=== PATIENT | male | born 1935 | race Caucasian/White ===

== ENCOUNTER 2019-06-07 07:48 | Inpatient (IN) | payer MEDICARE, BC ==
[~2019-06-07] VITALS: Ht 167.6 cm; Wt 72.6 kg
[2019-06-07] MEDS ORDERED: ONDANSETRON 4 MG/2 ML VIAL ONE ×2 (08:02→08:58)
[2019-06-07] MEDS ORDERED: MORPHINE SULFATE 2 MG/1 ML DISP.SYRIN ONE ×2 (08:02→08:37)
[2019-06-07] MEDS ORDERED: ONDANSETRON 4 MG/2 ML VIAL IV ONE ×2 (08:30→10:00)
[2019-06-07] MEDS ORDERED: MORPHINE SULFATE 2 MG/1 ML DISP.SYRIN IV ONE ×3 (08:30→09:00)
[2019-06-07] MEDS: IV NORMAL SALINE 500 ML BAG IV ONE ×2 (08:33→08:35)
--- NOTE | 2019-06-07 08:35 | NUR ---
Offered to provide more Morphine for pain relief, but patient refuses at this time.
[2019-06-07 08:46] LABS: ALANINE AMINOTRANSFERASE 11 U/L (16-63); ALKALINE PHOSPHATASE 98 U/L (50-136); ASPARTATE AMINOTRANSFERASE 12 U/L (15-37); BILIRUBIN,DIRECT 0.1 mg/dL (0.0-0.2); BILIRUBIN,TOTAL 0.4 mg/dL (0.2-1.0); CARBON DIOXIDE 29 mmol/L (21-32); CHLORIDE 99 mmol/L (98-107); CREATININE 2.1 mg/dL (0.6-1.3); GLUCOSE 198 mg/dL (74-106); LIPASE 106 U/L (73-393); POTASSIUM 3.9 mmol/L (3.5-5.1); TOTAL PROTEIN, SERUM 7.7 g/dL (6.4-8.2); UREA NITROGEN, BLOOD 44 mg/dL (7-18)
[2019-06-07 08:47] LABS: BASOPHILS % (AUTO) 0.1 % (0.0-2.0); EOSINOPHILS % (AUTO) 0.2 % (0.0-7.0); HEMATOCRIT 41.7 % (36.7-47.1); HEMOGLOBIN 13.6 g/dL (12.5-16.3); LYMPHOCYTES # (AUTO) 0.7 K/uL (20.0-40.0); LYMPHOCYTES % (AUTO) 3.9 % (20.5-51.5); MEAN CORPUSCULAR HGB CONC 33 g/dL (32.5-36.3); MEAN CORPUSCULAR VOLUME 86.1 fL (73.0-96.2); MONOCYTES # (AUTO) 1.1 K/uL (2.0-10.0); MONOCYTES % (AUTO) 6.7 % (0.0-11.0); NEUTROPHILS # (AUTO) 15.1 K/uL (1.8-8.9); NEUTROPHILS % (AUTO) 89.1 % (38.5-71.5); PLATELET COUNT (AUTO) 272 K/uL (152-348); RED BLOOD CELL COUNT(AUTO) 4.85 MIL/uL (4.06-5.63)
[2019-06-07] MEDS ORDERED: CLON0.2T PO (08:52)
[2019-06-07] MEDS ORDERED: ATEN50TA PO (08:52)
[2019-06-07] MEDS ORDERED: HYDR12.55 PO (08:52)
[2019-06-07] MEDS ORDERED: PROP15TA PO (08:52)
[2019-06-07] MEDS ORDERED: AMIO200T4 PO (08:52)
[2019-06-07] MEDS ORDERED: RAMI2.5C2 PO (08:52)
--- NOTE | 2019-06-07 08:53 | NUR ---
Patient received the second dose of Morphine 2mg IV, and is tolerating well. Pain relief noted, but nausea more pertinent at this time.
[2019-06-07] MEDS ORDERED: PIPERACILLIN SODIUM/TAZOBACTAM 3.375 G in IV DEXTROSE 5% 50 ML IV ONE (09:00)
--- NOTE | 2019-06-07 09:00 | NUR ---
ERMD at bedside discussing results of CT scan.
--- NOTE | 2019-06-07 09:05 | NUR ---
Dr. Her on the line with ERMD discussing patient case
[2019-06-07] MEDS ORDERED: PIPERACILLIN/TAZOBACTAM/D5W 50 ML IV ONE (09:09)
[2019-06-07] MEDS ORDERED: LIDOCAINE 2% (UROJET) 10 ML JELLY MM ONE ×2 (09:10→09:15)
--- NOTE | 2019-06-07 09:28 | NUR ---
Patient ambulated to the bathroom to attempt to move bowels.
--- NOTE | 2019-06-07 09:38 | NUR ---
Still awaiting call back from Keith
--- NOTE | 2019-06-07 09:40 | NUR ---
Dr. Her here at bedside for evaluation
--- NOTE | 2019-06-07 09:41 | NUR ---
2nd attempt to reach out to [facility], awaiting call back.
--- NOTE | 2019-06-07 09:42 | NUR ---
Patient had 3 bowel movements and states that he has more relief after moving bowels.
--- NOTE | 2019-06-07 09:59 | NUR ---
Patient in bathroom again moving BM.
--- NOTE | 2019-06-07 10:21 | NUR ---
Awaiting call back from [facility]
--- NOTE | 2019-06-07 10:51 | NUR ---
TELE not ready for report, still awaiting call back.
--- NOTE | 2019-06-07 11:27 | NUR ---
Report given to JOSELINE Magana
--- NOTE | 2019-06-07 11:37 | NUR ---
Patient transported to TELE in stable condition.
--- NOTE | 2019-06-07 11:45 | NUR ---
Received this admission from ER per with the chief complaint of abdominal pain, diagnosis of colitis. Transferred to bed comfortably. Routine admission care rendered. Placed on tele SR. Awake, alert oriented x 4, able to move all extremities on purpose. Patient verbalized having loose stool x [address] Gayle for admission orders
[2019-06-07 12:01] VITALS: BP 139/41
[2019-06-07] MEDS ORDERED: ONDANSETRON 4 MG/2 ML VIAL IV PRN (12:45)
[2019-06-07] MEDS ORDERED: MORPHINE SULFATE 2 MG/1 ML DISP.SYRIN IV PRN (12:45)
[2019-06-07] MEDS ORDERED: IV D5 1/2 NS 1000 ML 1,000 ML IV PRN (12:45)
--- NOTE | 2019-06-07 13:00 | NUR ---
With admission orders. To start IVF, but patient was not in his room, Tele monitor off. Left a message to his phone and spoke with his girlfriend Christina. She will get hold of him. will follow up
--- NOTE | 2019-06-07 13:30 | NUR ---
Patient called back informing he will not come back. saline lock removed. Dr. Gayle informed of patient leaving against medical advice.
[2019-06-07] MEDS ORDERED: PANTOPRAZOLE SODIUM 40 MG VIAL IV SCH (14:00)
[2019-06-07] MEDS ORDERED: PIPERACILLIN/TAZOBACTAM/D5W 3.375 G in IV DEXTROSE 5% 50 ML IV SCH (17:00)
[2019-06-07] MEDS ORDERED: PIPERACILLIN/TAZO 2.25 G in IV DEXTROSE 5% 50 ML IV SCH (18:00)
== END 2019-06-07 12:59 | disposition left against medical advice (07) | DRG 371 ==
LOC: ER 07:48 → TELE3 11:09
PROVIDERS: ADMIT Internal Medicine; ATTEND Internal Medicine
DX: A04.9 Bacterial intestinal infection, unspecified (principal); N17.0 Acute kidney failure with tubular necrosis; K57.32 Diverticulitis of large intestine without perforation or abscess without bleeding; K59.09 Other constipation; N40.0 Benign prostatic hyperplasia without lower urinary tract symptoms; I12.9 Hypertensive chronic kidney disease with stage 1 through stage 4 chronic kidney disease, or unspecified chronic kidney disease; N18.9 Chronic kidney disease, unspecified; R73.9 Hyperglycemia, unspecified; I25.10 Atherosclerotic heart disease of native coronary artery without angina pectoris; Z87.19 Personal history of other diseases of the digestive system; Z79.899 Other long term (current) drug therapy; R00.1 Bradycardia, unspecified; R91.1 Solitary pulmonary nodule
CPT/HCPCS: 36415; 83690; 85025; 93005; A4663; C1758; C9113; G0378; J2270; J2405; J2543; J3490; J7060

== ENCOUNTER 2020-08-15 21:07 | Inpatient (IN) | payer MEDICARE, BC ==
[~2020-08-15] VITALS: Ht 172.7 cm; Wt 68.0 kg
[~2020-08-15 21:07] MED LIST: AMIO200T5 PO; ATEN50TA PO; CLON0.2T PO; HYDR12.55 PO; PROP15TA PO; RAMI2.5C55 PO
--- NOTE | 2020-08-15 21:30 | NUR ---
Patient present to the ED via [facility] for ALOC/Confusion from home. Neighbor (who is also the coworker) was the person to contact neurology teacher. Patient is confused - A&O times 1/2. Is able to say why he is here and where he is but not what year it is. Unable to obtain pertinent information from this patient due to ALOC. Sinus Rhythm. No reports of chest pain or palpitations. Lungs show bilateral infiltrates typical of pneumonia. Patient was possibly previously COVID +. Patient self catheterizes at home. Safety measures in place.
[2020-08-15] MEDS ORDERED: PROP225T2 PO (21:31)
[2020-08-15] MEDS ORDERED: TRIA1CAP19 PO (21:31)
[2020-08-15 21:56] LABS: EOSINOPHILS # (AUTO) 0.1 K/uL (0.0-0.7); LYMPHOCYTES # (AUTO) 0.9 K/uL (20.0-40.0); MONOCYTES # (AUTO) 0.6 K/uL (2.0-10.0)
[2020-08-15 21:59] LABS: NEUTROPHILS # (AUTO) 5.5 K/uL (1.8-8.9)
[2020-08-15 22:05] LABS: CARBON DIOXIDE 24 mmol/L (21-32); CHLORIDE 99 mmol/L (98-107); CREATININE 2.4 mg/dL (0.6-1.3); GLUCOSE 93 mg/dL (74-106); POTASSIUM 3.6 mmol/L (3.5-5.1); UREA NITROGEN, BLOOD 50 mg/dL (7-18)
[2020-08-15 22:10] LABS: ALANINE AMINOTRANSFERASE 15 U/L (16-63); ALKALINE PHOSPHATASE 59 U/L (50-136); ASPARTATE AMINOTRANSFERASE 33 U/L (15-37); BILIRUBIN,DIRECT 0.3 mg/dL (0.0-0.2); TOTAL PROTEIN, SERUM 7.4 g/dL (6.4-8.2)
[2020-08-15 22:11] LABS: CREATINE KINASE, TOTAL 218 U/L (39-308)
[2020-08-15 22:15] LABS: FERRITIN 574 ng/mL (26-388); LACTATE DEHYDROGENASE 396 U/L (85-227)
[2020-08-15 22:17] LABS: ACETAMINOPHEN < 2.0 ug/mL (10-30)
[2020-08-15] MEDS ORDERED: IV NORMAL SALINE 250 ML BAG IV ONE (22:30)
[2020-08-15] MEDS ORDERED: IV NORMAL SALINE 500 ML BAG IV ONE (22:30)
[2020-08-15 22:31] LABS: BASOPHILS % (AUTO) 0.6 % (0.0-2.0); EOSINOPHILS % (AUTO) 1.5 % (0.0-7.0); HEMATOCRIT 40.6 % (36.7-47.1); HEMOGLOBIN 13.5 g/dL (12.5-16.3); LYMPHOCYTES % (AUTO) 12.8 % (20.5-51.5); MEAN CORPUSCULAR HEMOGLOBIN 28.7 uug (23.8-33.4); MEAN CORPUSCULAR HGB CONC 33 g/dL (32.5-36.3); MEAN CORPUSCULAR VOLUME 86.2 fL (73.0-96.2); MONOCYTES % (AUTO) 8.5 % (0.0-11.0); NEUTROPHILS % (AUTO) 76.6 % (38.5-71.5); PLATELET COUNT (AUTO) 240 K/uL (152-348); RED BLOOD CELL COUNT(AUTO) 4.71 MIL/uL (4.06-5.63); WHITE BLOOD COUNT (AUTO) 7.1 K/uL (3.6-10.2)
[2020-08-15 22:43] LABS: *BILIRUBIN,URIN 1+ (NEGATIVE); *COLOR,URINE YELLOW (YELLOW); *KETONES,URINE TRACE (NEGATIVE); LEUKOCYTE ESTERASE ,URINE 1+ (NEGATIVE); NITRITE, URINE NEGATIVE (NEGATIVE); PH,URINE 6.5 (5.0-8.0); UGLUCOSE NEGATIVE (NEGATIVE)
[2020-08-15 22:45] LABS: *BLOOD, URINE TRACE (NEGATIVE)
[2020-08-15 22:46] LABS: *CLARITY,URINE HAZY (CLEAR)
[2020-08-15 22:53] LABS: BACTERIA,URINE MODERATE /HPF (NONE SEEN); WBC,URINE 20-50 /HPF (0-3)
[2020-08-15 22:54] LABS: SQUAMOUS EPITHELIAL CELL,UR FEW /HPF (NONE SEEN)
[2020-08-15] MEDS ORDERED: ENOXAPARIN SODIUM 60 MG/0.6 ML DISP.SYRIN SQ ONE (23:00)
[2020-08-15 23:04] LABS: *AMPHETAMINE, URINE NEGATIVE (NEGATIVE); *CANNABINOID, URINE NEGATIVE (NEGATIVE); *COCCAINE, URINE NEGATIVE (NEGATIVE); *OPIATE, URINE NEGATIVE (NEGATIVE); *PHENCYCLIDINE SCREEN,URINE NEGATIVE (NEGATIVE)
[2020-08-15] MEDS ORDERED: CEFTRIAXONE /D5W 50ML IVPB **ER PYXIS IV ONE (23:08)
[2020-08-15] MEDS: CEFTRIAXONE 1 G in IV DEXTROSE 5% 50 ML IV SCH (23:12)
[2020-08-15] MEDS ORDERED: DEXAMETHASONE SOD PHOSPHATE 10 MG INJ ONE (23:43)
[2020-08-15] MEDS ORDERED: MAGNESIUM HYDROXIDE 30 ML LIQUID UDC PO PRN (23:45)
[2020-08-15] MEDS ORDERED: ACETAMINOPHEN 325 MG TABLET PO PRN (23:45)
[2020-08-15] MEDS ORDERED: ONDANSETRON 4 MG/2 ML VIAL IV PRN (23:45)
[2020-08-15] MEDS ORDERED: CEFTRIAXONE 1 G in IV DEXTROSE 5% 50 ML IV SCH (23:45)
[2020-08-15] MEDS ORDERED: HYDROCODONE/APAP 5-325MG TABLET PO PRN (23:45)
[2020-08-15] MEDS ORDERED: Z GUARD REMEDY PASTE 57 GM TUBE TOP PRN (23:45)
[2020-08-16] MEDS ORDERED: DEXAMETHASONE SOD PHOSPHATE 4 MG INJ IV ONE
--- NOTE | 2020-08-16 00:20 | NUR ---
ADMITTED PATIENT ON THE TELE FLOOR UNDER THE CARE OF REKHA OLEARY NP. PATIENT ALERT TO NAME, NO CHEST PAIN, PATIENT ON 5 LPM OXYGEN FOR SOB, RUSSELL CATH CAME OUT, WILL REINSERT NEW ONE. PATIENT HAS LEFT ELBOW ABRASION, HAS LEFT AND RIGHT ARM MULTIPLE BRUISES, AND LEFT AND RIGHT MULTIPLE BRUISE. PATIENT ON PUI, COVID PCR PENDING. CONT TO MONITOR.
--- NOTE | 2020-08-16 00:34 | NUR ---
Patient taken to Room 314 via gurney under the care of Bhavesh TREVIZO. All belongings & Medications with patient. Old report with patient given to histopath tech Angela. NO distress noted. Patient still confused. VSS.
[2020-08-16] MEDS: IV NS 1000 ML 1,000 ML IV PRN (01:00)
[2020-08-16 01:16] VITALS: BP 112/71
--- NOTE | 2020-08-16 01:58 | NUR ---
PATIENT REFUSED TELE MONITOR BOX, PATIENT GETS AGITATED, ALLOW TO HAVE OXYGEN 5LPM, AND IV HYDRATION, WILL CONT TO OFFER.
--- NOTE | 2020-08-16 02:00 | NUR ---
PATIENT REMOVES OXYGEN ALSO, CONTINUE TO REORIENT PATIENT NOT TO REMOVED IT. CONT TO MONITOR.
--- NOTE | 2020-08-16 02:04 | NUR ---
PATIENT REFUSE RUSSELL CATH INSERTION, GETS COMBATIVE AND AGITATED.
--- NOTE | 2020-08-16 03:00 | NUR ---
PATIENT CONTINUE TO REFUSED OXYGEN NC, OXYGEN SAT 94-96% ROOM AIR. PATIENT HAS NO S/S OF SOB AT THIS TIME, CONT TO MONITOR. CONTINUE TO REFUSE TELE MONITOR BOX ALSO AT THIS TIME, CONT TO MONITOR.
--- NOTE | 2020-08-16 06:11 | NUR ---
PATIENT AMBULATE TO HALLWAYS, REORIENT PATIENT THAT HE NEEDS TO STAY ON HIS ROOM, ASSISTED BACK TO ROOM, GIVEN JUICE AND PUDDING NOURISHMENT FOR COMFORT. PATIENT IV HYDRATION ON HOLD AT THIS TIME, REFUSED LAB WORKS.
--- NOTE | 2020-08-16 06:52 | NUR ---
PATIENT REFUSED V/S TAKEN 95% ROOM AIR, REFUSED TELE MONITOR, REFUSED RUSSELL CATH, AND IV HYDRATION ON HOLD AT THIS TIME.
--- NOTE | 2020-08-16 07:30 | NUR ---
Received patient awake in bed. no signs of acute distress. bed alarm on. patient refused tele monitor box. will continue to monitor.
--- NOTE | 2020-08-16 09:30 | NUR ---
PATIENT REFUSED LAB DRAW. PATIENT REFUSED V/S. PATIENT EASILY AGITATED. PATIENT TRIES TO GET OUT OF BED MULTIPLE TIMES BUT REDIRECTABLE. WILL CONTINUE TO MONITOR
[2020-08-16 09:35] LABS: *BILIRUBIN,URIN NEGATIVE (NEGATIVE); *BLOOD, URINE 2+ (NEGATIVE); *COLOR,URINE YELLOW (YELLOW); *KETONES,URINE 1+ (NEGATIVE); *UROBILINOGEN,URINE 0.2 E.U./dl (NORMAL); LEUKOCYTE ESTERASE ,URINE TRACE (NEGATIVE); NITRITE, URINE NEGATIVE (NEGATIVE); UGLUCOSE NEGATIVE (NEGATIVE)
[2020-08-16 10:32] LABS: *CREATININE,URINE 133.2 mg/dL (30-125); *URINE TOTAL PROTEIN RANDOM 58.3 mg/dL (<150/24HR)
--- NOTE | 2020-08-16 11:22 | NUR ---
Pt refused renal ultrasound, pt wants to leave AMA.
[2020-08-16] MEDS ORDERED: HALOPERIDOL LACTATE 5 MG/1 ML VIAL IM ONE ×2 (11:30→21:00)
--- NOTE | 2020-08-16 11:45 | NUR ---
patient became agitated, getting out of bed with his unsteady and weak gait, verbalizing he wants to go home. informed FRANTZ Tillman. FRANTZ Tillman talked to the patient and explained he is unstable to be sent home. patient became aggressive and agitated. patient did not want to go back to his room and was hitting the doors to go outside. FRANTZ Tillman ordered Haldol 2mg IM x 1 dose. Took patient back to room. bed alarm on. will continue to monitor.
[2020-08-16 14:22] LABS: *CLARITY,URINE SLIGHTLY CLOUDY (CLEAR)
[2020-08-16 14:23] LABS: BACTERIA,URINE FEW /HPF (NONE SEEN)
[2020-08-16 14:24] LABS: SQUAMOUS EPITHELIAL CELL,UR FEW /HPF (NONE SEEN); URINE AMORPHOUS URATE MODERATE /HPF
[2020-08-16 16:10] VITALS: BP 110/45
--- NOTE | 2020-08-16 19:30 | NUR ---
Received patient lying in bed. AAOx3-4. In no acute distress. A bit anxious, wanting to be left alone. IV site on right FA remains intact and patent. Patient still refusing to have case monitor placed as well as IVF. safety measure initiated. Call dow within reached. Continue to monitor
[2020-08-16 20:09] VITALS: BP 119/61
[2020-08-16] MEDS: AMIODARONE HCL 200 MG TABLET PO SCH (20:44)
[2020-08-16] MEDS: ATENOLOL 25 MG TABLET PO SCH (20:44)
[2020-08-16] MEDS: ENOXAPARIN SODIUM 30 MG/0.3 ML DISP.SYRIN SUBCUT SCH (20:46)
[2020-08-16] MEDS ORDERED: ATENOLOL 50 MG TABLET PO SCH (21:00)
--- NOTE | 2020-08-16 21:15 | NUR ---
Patient getting very agitated, yelling and screaming and being combative. Still refused to have concrete pouring supervisor on, also refusing bladder scan. No urinary output until now. Wanting to have straight catheter. Insisting to get straight catheter. Addendum: 08/17/20 at 0035 by ALIS BA RN Informed ADMINISTRATIVE MEDICAL DIRECTOR bam Tillman order for Haldol 5mg IM now. Order read back and verified. Will carry out order.
--- NOTE | 2020-08-16 23:00 | NUR ---
Straight catheter done, assisted patient, drained 600ml of yellow urine output.
[2020-08-16] MEDS: CEFTRIAXONE 1 G in IV DEXTROSE 5% 50 ML IV SCH (23:12)
--- NOTE | 2020-08-16 23:12 | NUR ---
Patient agreed to have IV antibiotics and IVF. Addendum: 08/17/20 at 0037 by ALIS BA RN Still refused to have lunchroom monitor on.
[2020-08-17] MEDS: IV NS 1000 ML 1,000 ML IV PRN ×2 (00:13→06:08)
--- NOTE | 2020-08-17 05:13 | NUR ---
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 No signs or symptoms of pain or SOB noted. NSR on tele at 85/min. Addendum: 08/17/20 at 0618 by ALIS BA RN wrong patient
--- NOTE | 2020-08-17 05:44 | NUR ---
Patient requested straight cath. Done and obtain 300ml of yellow urine output. Offered director of cardiac cath lab, but patient continue to refused.
--- NOTE | 2020-08-17 06:21 | NUR ---
Patient slept well last night. Right FA IV site remains intact. IVF infusing. No adverse reaction noted from IV antibiotics. Still refusing desk monitor. Also refused to have VS taken.
--- NOTE | 2020-08-17 07:30 | NUR ---
Received patient in bed. on room air. IV access intact. IVF infusing. will continue to monitor.
[2020-08-17 11:40] LABS: BASOPHILS % (AUTO) 0.2 % (0.0-2.0); EOSINOPHILS % (AUTO) 0.4 % (0.0-7.0); HEMATOCRIT 39.5 % (36.7-47.1); HEMOGLOBIN 13.3 g/dL (12.5-16.3); LYMPHOCYTES # (AUTO) 0.7 K/uL (20.0-40.0); LYMPHOCYTES % (AUTO) 13.9 % (20.5-51.5); MEAN CORPUSCULAR HEMOGLOBIN 29.2 uug (23.8-33.4); MEAN CORPUSCULAR HGB CONC 34 g/dL (32.5-36.3); MEAN CORPUSCULAR VOLUME 86.7 fL (73.0-96.2); MONOCYTES # (AUTO) 0.6 K/uL (2.0-10.0); MONOCYTES % (AUTO) 12.6 % (0.0-11.0); NEUTROPHILS # (AUTO) 3.7 K/uL (1.8-8.9); NEUTROPHILS % (AUTO) 72.9 % (38.5-71.5); PLATELET COUNT (AUTO) 336 K/uL (152-348); RED BLOOD CELL COUNT(AUTO) 4.55 MIL/uL (4.06-5.63); WHITE BLOOD COUNT (AUTO) 5.1 K/uL (3.6-10.2)
[2020-08-17 11:57] LABS: ALANINE AMINOTRANSFERASE 22 U/L (16-63); ALKALINE PHOSPHATASE 56 U/L (50-136); ASPARTATE AMINOTRANSFERASE 45 U/L (15-37); BILIRUBIN,TOTAL 0.6 mg/dL (0.2-1.0); CARBON DIOXIDE 23 mmol/L (21-32); CHLORIDE 103 mmol/L (98-107); CREATINE KINASE, TOTAL 553 U/L (39-308); CREATININE 1.5 mg/dL (0.6-1.3); GLUCOSE 116 mg/dL (74-106); PHOSPHOROUS 2.6 mg/dL (2.5-4.9); POTASSIUM 3.6 mmol/L (3.5-5.1); TOTAL PROTEIN, SERUM 7.2 g/dL (6.4-8.2); UREA NITROGEN, BLOOD 35 mg/dL (7-18)
[2020-08-17 12:00] VITALS: BP 138/51
[2020-08-17 12:10] LABS: MAGNESIUM 2.4 mg/dL (1.8-2.4)
[2020-08-17] MEDS: ENSURE ENLIVE (VAN) 240 ML LIQUID PO SCH (17:00)
--- NOTE | 2020-08-17 17:06 | NUR ---
Pipe Organ Builder note: SW was able to speak with patient via ZOOM. Patient is an 84 year old male, who came to the hospital on 08/15 for UTI and increased confusion. Patient is a PUI patient, and therefore due to COVID-19 precautions, this interview was held via ZOOM. Per nursing report, patient has been angry, combative, and refusing some treatments and services. Patient lives alone. Patient has a friend/caregiver Christina, who provides him with care and assists with some IADLs, as needed. 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 Patient was receptive to speaking with this SW. Patient was cooperative and engaged in conversation with this SW. Patient was seated at the edge of his bed. Patient presented lucid, although per medical records and nursing rport, patient was noted to have confusion. Patient was able to state the date, his location, and reason for hospitalization. Patient was also able to state that the current president is Belle. Discharge plans discussed, and patient stated he will be returning home and Christina will continue to assist him with his needs. SW explored additional supportive services for the patient, and patient stated he did not need additional services at this time. Patient stated that he plans on going home tomorrow. Towards the end of the interview, patient lied down in his bed, however continued to engage in dialogue with this SW. At time of discharge, the plan is for patients friend Christina to be contacted in order to provided transportation for the patient. SW also spoke with patients attending physician Kate, who stated that she too spoke with patients friend/caregiver Christina regarding patients ongoing care needs and discharge plans.
--- NOTE | 2020-08-17 19:30 | NUR ---
Pt lying in bed, aaox2-3. Denies any acute distress. On RA, denies SOB. V/S stable. Pt requested to get Valium (2mg), made aware. Per day shift RNYina, pt pulled out IV. Refused to reinsert a new IV. Pt refusing to have traffic monitor specialist placed. Safety measures in place. Call light within reach.
[2020-08-17] MEDS ORDERED: DIAZEPAM 2 MG TABLET PO ONE (19:45)
[2020-08-17] MEDS: AMIODARONE HCL 200 MG TABLET PO SCH (20:04)
[2020-08-17] MEDS: ENOXAPARIN SODIUM 30 MG/0.3 ML DISP.SYRIN SUBCUT SCH (20:05)
[2020-08-17] MEDS: ATENOLOL 25 MG TABLET PO SCH (20:05)
[2020-08-17 20:20] VITALS: BP 125/72
[2020-08-17] MEDS: CEFTRIAXONE 1 G in IV DEXTROSE 5% 50 ML IV SCH (23:00)
--- NOTE | 2020-08-18 06:04 | NUR ---
Assisted pt to self catheter. Output of 300ml noted. Refused meds such as lovenox and amiodarone, as well as 4am vitals. Pt also refused IV and PCR testing for Covid. Pt stated that he is going home today. No significant changes on pt status. Denies SOB, on RA. Safety measures in place. Will endorse to oncoming nurse.
--- NOTE | 2020-08-18 07:43 | NUR ---
Received sitting in bed awake and oriented. No acute distress. Breathing non labored. Denies pain. Denies sob on room air. Safety measures in place. Call light within reach and encouraged patient to use it. Will continue to monitor.
[2020-08-18] MEDS: ENSURE ENLIVE (VAN) 240 ML LIQUID PO SCH (08:23)
[2020-08-18] MEDS ORDERED: CIPR-262 PO (09:11)
--- NOTE | 2020-08-18 09:13 | NUR ---
Patient seen walking in the hallway and redirected back to his room safely. Call light is within reach and encouraged patient to call for help if needed. He verbalized ok
--- NOTE | 2020-08-18 10:52 | NUR ---
Spoke with GINO Jarrett and aware of discharge order. Home health is being arranged by Luiza. Patient will be visited on Thursday by RN and PT for eval. GINO also ordered DME FWW and will be delivered to the patient Thursday the latest.
--- NOTE | 2020-08-18 11:36 | NUR ---
Patient is discharged to home picked up by his caregiver Christina. Patient alert and oriented, happy to be discharged. All belongings are inventoried and verified by the patient. However, he refused VS check and refused skin assessment verbalizing he's ok. Also offered pneumonia and flu vaccines, but he refused and was unable to say when/if he got them already. Patient education done with the patient and verbalized understanding. Informed that patient is being referred to [facility] and will be evaluated on Thursday per GINO Jarrett. Also informed that FWW will be delivered by [facility] on Thursday before 10am. Patient said ok. Patient picked up by caregiver Christina and was also informed about patient's medication that MD wants him to continue, Home health visit and DME delivery. Patient was discharged in stable condition.
--- NOTE | 2020-08-18 11:36 | NUR ---
Addendum to discharge note: Patient's home medications brought in during admission also sent home with the patient in good condition. No complaints.
[2020-08-18] MEDS ORDERED: QUET25TA PO (14:20)
[2020-08-27 20:04] LABS: ALBUMIN 2.7; ALPHA-1-GLOBULIN 0.3
[2020-08-27 20:05] LABS: ALPHA-2-GLOBULIN 0.9
[2020-08-27 20:06] LABS: GAMMA GLOBULIN 1.4; GLOBULIN, TOTAL 3.7; M-SPIKE NOT OBSERVED
[2020-08-27 20:07] LABS: A/G RATIO 0.7
== END 2020-08-18 11:30 | disposition home health service (06) | DRG 682 ==
LOC: ER 21:08 → TELE3 23:55 → MEDSURG3 08-16 08:23 → TELE3 08-16 18:34 → MED 08-18 01:48 → MEDSURG3 08-18 02:35
PROVIDERS: ADMIT Nurse Practitioner Acute Care; ATTEND Nurse Practitioner Acute Care
DX: N17.0 Acute kidney failure with tubular necrosis (principal); J15.9 Unspecified bacterial pneumonia; G93.41 Metabolic encephalopathy; N39.0 Urinary tract infection, site not specified; I12.9 Hypertensive chronic kidney disease with stage 1 through stage 4 chronic kidney disease, or unspecified chronic kidney disease; E86.0 Dehydration; N18.9 Chronic kidney disease, unspecified; N40.1 Benign prostatic hyperplasia with lower urinary tract symptoms; Z87.01 Personal history of pneumonia (recurrent); Z86.16 Personal history of COVID-19; Z20.822 Contact with and (suspected) exposure to COVID-19; Z90.49 Acquired absence of other specified parts of digestive tract; Z91.19 Patient's noncompliance with other medical treatment and regimen; Z87.19 Personal history of other diseases of the digestive system; Z79.899 Other long term (current) drug therapy
CPT/HCPCS: 36415; 70030-TC; 70450; 71045; 83605; 83615; 83735; 83970; 84100; 84155; 84156; 84165; 84300; 85025; 85730; 86140; 87040; 87086; 93005; A4663; C1758; G0378; J0696; J1100; J1630; J1650; J7030; J7050; J7060; U0003

== ENCOUNTER 2020-08-19 11:07 | Inpatient (IN) | payer MEDICARE, BC ==
[~2020-08-19] VITALS: Ht 165.1 cm; Wt 65.8 kg
[~2020-08-19 11:07] MED LIST changes: +CIPR-262 PO; -CLON0.2T PO; -HYDR12.55 PO; -PROP15TA PO; +PROP225T2 PO; +QUET25TA PO; +TRIA1CAP19 PO
--- NOTE | 2020-08-19 11:37 | NUR ---
PATIENT WAS SEEN BY ER DOCTOR. HE IS AWAKE BUT VERY WEAK AND NOT TOO ALERT. 12 LEAD EKG DONE. IV PLACED. LABS DRAWN. COVID ANTIGEN SWAB DONE. PATIENT IS IN CT SCAN NOW.
[2020-08-19 11:47] LABS: BASOPHILS % (AUTO) 0.7 % (0.0-2.0); EOSINOPHILS # (AUTO) 0.1 K/uL (0.0-0.7); EOSINOPHILS % (AUTO) 1.4 % (0.0-7.0); HEMATOCRIT 40.4 % (36.7-47.1); HEMOGLOBIN 13.5 g/dL (12.5-16.3); LYMPHOCYTES # (AUTO) 0.8 K/uL (20.0-40.0); LYMPHOCYTES % (AUTO) 16.1 % (20.5-51.5); MEAN CORPUSCULAR HEMOGLOBIN 29.6 uug (23.8-33.4); MEAN CORPUSCULAR HGB CONC 33 g/dL (32.5-36.3); MEAN CORPUSCULAR VOLUME 88.7 fL (73.0-96.2); MONOCYTES # (AUTO) 0.7 K/uL (2.0-10.0); MONOCYTES % (AUTO) 14.1 % (0.0-11.0); NEUTROPHILS # (AUTO) 3.1 K/uL (1.8-8.9); NEUTROPHILS % (AUTO) 67.7 % (38.5-71.5); PLATELET COUNT (AUTO) 298 K/uL (152-348); RED BLOOD CELL COUNT(AUTO) 4.55 MIL/uL (4.06-5.63); WHITE BLOOD COUNT (AUTO) 4.7 K/uL (3.6-10.2)
[2020-08-19 11:52] LABS: CARBON DIOXIDE 27 mmol/L (21-32); CHLORIDE 105 mmol/L (98-107); CREATININE 1.6 mg/dL (0.6-1.3); GLUCOSE 97 mg/dL (74-106); UREA NITROGEN, BLOOD 23 mg/dL (7-18)
[2020-08-19 11:58] LABS: ALANINE AMINOTRANSFERASE 29 U/L (16-63); ALKALINE PHOSPHATASE 65 U/L (50-136); ASPARTATE AMINOTRANSFERASE 49 U/L (15-37); BILIRUBIN,DIRECT 0.2 mg/dL (0.0-0.2); BILIRUBIN,TOTAL 0.7 mg/dL (0.2-1.0); TOTAL PROTEIN, SERUM 7.3 g/dL (6.4-8.2)
[2020-08-19] MEDS ORDERED: IV NORMAL SALINE 500 ML BAG IV ONE (12:00)
--- NOTE | 2020-08-19 12:05 | NUR ---
Urine sent to lab
[2020-08-19 12:10] LABS: *BILIRUBIN,URIN NEGATIVE (NEGATIVE); *BLOOD, URINE NEGATIVE (NEGATIVE); *CLARITY,URINE CLEAR (CLEAR); *COLOR,URINE YELLOW (YELLOW); *KETONES,URINE NEGATIVE (NEGATIVE); *UROBILINOGEN,URINE 0.2 E.U./dl (NORMAL); LEUKOCYTE ESTERASE ,URINE NEGATIVE (NEGATIVE); NITRITE, URINE NEGATIVE (NEGATIVE); UGLUCOSE NEGATIVE (NEGATIVE)
[2020-08-19 12:22] LABS: *AMPHETAMINE, URINE NEGATIVE (NEGATIVE); *CANNABINOID, URINE NEGATIVE (NEGATIVE); *COCCAINE, URINE NEGATIVE (NEGATIVE); *OPIATE, URINE NEGATIVE (NEGATIVE); *PHENCYCLIDINE SCREEN,URINE NEGATIVE (NEGATIVE)
[2020-08-19] MEDS ORDERED: QUETIAPINE FUMARATE 25 MG TABLET ONE (12:39)
[2020-08-19] MEDS ORDERED: HALOPERIDOL LACTATE 5 MG/1 ML VIAL IM ONE (12:45)
[2020-08-19] MEDS ORDERED: ONDANSETRON 4 MG/2 ML VIAL IV PRN (12:45)
[2020-08-19] MEDS ORDERED: Z GUARD REMEDY PASTE 57 GM TUBE TOP PRN (12:45)
[2020-08-19] MEDS ORDERED: HYDROCODONE/APAP 5-325MG TABLET PO PRN (12:45)
[2020-08-19] MEDS ORDERED: QUETIAPINE FUMARATE 25 MG TABLET PO ONE (12:45)
[2020-08-19] MEDS ORDERED: ACETAMINOPHEN 325 MG TABLET PO PRN (12:45)
[2020-08-19] MEDS ORDERED: MAGNESIUM HYDROXIDE 30 ML LIQUID UDC PO PRN (12:45)
--- NOTE | 2020-08-19 14:20 | NUR ---
pt came up from the emergency room, received report from JOSELINE Castaneda. Pt resting in bed, sleeping, easily arousable, on tele monitor, sinus rhythm, on 3L O2 via nasal canula saturating at 97 %. pt is on bed rest due to generalized weakness. Pt voids using zabala catheter. IV access on the left FA 20g saline lock. bed in low and locked position, safety and isolation precautions in place, no signs of distress noted, no signs of pain, will continue to monitor.
[2020-08-19 15:36] VITALS: BP 141/72
[2020-08-19] MEDS: CEFTRIAXONE 1 G in IV DEXTROSE 5% 50 ML IV SCH (17:25)
[2020-08-19] MEDS: IV D5/ 0.9% NACL 1,000 ML IV PRN (18:16)
--- NOTE | 2020-08-19 18:59 | NUR ---
PT RESTING IN BED, EASILY AROUSABLE. SPEECH SLURRED, UNCLEAR, PT COOPERATIVE, ON TELE MONITOR NSR. IV ACCESS ON THE LEFT FA 20G SL, NO SIGNS OF INFILTRATION, PATENT. PT ON 3L O2 VIA NC SATURATING AT 98%, NO SIGNS OF DISTRESS, NO REPORTS OF PAIN NOTED. PT ON BEDREST, VOIDS VIA RUSSELL CATHETER. BED IN LOW AND LOCKED POSITION, CALL LIGHT WITHIN REACH, SAFETY AND ISOLATION PRECAUTIONS IN PLACE, WILL ENDORSE TO ONCOMING NURSE.
--- NOTE | 2020-08-19 19:30 | NUR ---
RECEIVED PT AWAKE AND RESPONSIVE TO VERBAL STIMULI. NO SOB NO CHEST PAIN. PATIENT TELE MONITOR SINUS RHYTHM. PATIENT ON 3L NASAL CANNULA AT 98% OXYGEN SATURATION . PATIENT HAS NO COMPLAIN OF PAIN AT THIS TIME. RUSSELL CATH PATENT. WILL CONTINUE TO MONITOR.
[2020-08-19 20:17] VITALS: BP 119/60
[2020-08-19] MEDS ORDERED: ATENOLOL 50 MG TABLET PO SCH (21:00)
[2020-08-19] MEDS: AMIODARONE HCL 200 MG TABLET PO SCH (21:00)
--- NOTE | 2020-08-19 22:00 | NUR ---
PT REFUSED HIS MEDICATION. PT JUST WANT TO SLEEP. MARY CALLED AND ASK UPDATE REGARDING THE PT. PT IN NO ACUTE DISTRESS.
[2020-08-20 00:55] VITALS: BP 118/67
[2020-08-20 06:00] VITALS: BP 123/66
--- NOTE | 2020-08-20 06:24 | NUR ---
PT IN NO ACUTE DISTRESS. PT IV AND RUSSELL CATHETER INTACT. PRESCRIBED MEDICATION GIVEN AND PT TOLERATED IT WELL. PT COMBATIVE,CONFUSED, GETTING OUT OF BED, TAKING OFF HIS RUSSELL, HEART MONITOR AND NASAL CANNULA. AT 0607H BARREL HANDLER [facility] ORDERED BILATERAL WRIST RESTRaint.PT VITAL SIGNS SINUS RHYTHM AND SOMETIMES SINUS BRADYCARDIA 58.. PT ON 3L NASAL CANNULA. SAFETY AND COMFORT PROVIDED. ALL NEEDS ARE MET. WILL ENDORSE TO INCOMING NURSE FOR CONTINUITY OF CARE.
--- NOTE | 2020-08-20 06:33 | NUR ---
NOTIFY LEAD CASTER THAT PT IS ON TELE BUT PT ADMITTING ORDER IS [facility] IF SHE WANT TO ORDER TELE OR DC IT. DR LEAD CASTER REPLIED TO ASK THE ADMITTING DOCTOR FOR SHE DOESN'T KNOW THE PT. WILL ENDORSE TO INCOMING NURSE.
[2020-08-20 06:40] LABS: BASOPHILS % (AUTO) 0.7 % (0.0-2.0); EOSINOPHILS # (AUTO) 0.1 K/uL (0.0-0.7); HEMATOCRIT 38.5 % (36.7-47.1); HEMOGLOBIN 13.1 g/dL (12.5-16.3); LYMPHOCYTES # (AUTO) 1.3 K/uL (20.0-40.0); LYMPHOCYTES % (AUTO) 22.5 % (20.5-51.5); MEAN CORPUSCULAR HEMOGLOBIN 30.1 uug (23.8-33.4); MEAN CORPUSCULAR HGB CONC 34 g/dL (32.5-36.3); MEAN CORPUSCULAR VOLUME 88.1 fL (73.0-96.2); MONOCYTES # (AUTO) 0.8 K/uL (2.0-10.0); MONOCYTES % (AUTO) 13.9 % (0.0-11.0); NEUTROPHILS # (AUTO) 3.4 K/uL (1.8-8.9); NEUTROPHILS % (AUTO) 60.9 % (38.5-71.5); PLATELET COUNT (AUTO) 300 K/uL (152-348); RED BLOOD CELL COUNT(AUTO) 4.37 MIL/uL (4.06-5.63); WHITE BLOOD COUNT (AUTO) 5.6 K/uL (3.6-10.2)
--- NOTE | 2020-08-20 06:59 | NUR ---
PT FORCEFULLY TAKE OFF HIS RESTRAINT AND PULLED OUT HIS RUSSELL, HEART MONITOR, NASAL CANNULA AND GET OUT OF THE BED. PT WAS ASSISTED BACK TO THE BED WITH RESTRAINT. ENDORSE TO INCOMING NURSE REGRADING THE RUSSELL WAS PULLED OUT WHERE THE CONNECTING TUBE WHERE THE DEFLATE/INFLATE IS. PT IN NO ACUTE DISTRESS OF THE MOMENT.
[2020-08-20 07:01] LABS: CARBON DIOXIDE 28 mmol/L (21-32); CHLORIDE 105 mmol/L (98-107); CHOLESTEROL 134 mg/dL (<200); CREATININE 1.4 mg/dL (0.6-1.3); GLUCOSE 115 mg/dL (74-106); HDL CHOLESTEROL 34 mg/dL (40-60); PHOSPHOROUS 2.7 mg/dL (2.5-4.9); POTASSIUM 3.1 mmol/L (3.5-5.1); TRIGLYCERIDES 147 MG/DL (30-150); UREA NITROGEN, BLOOD 16 mg/dL (7-18)
[2020-08-20] MEDS ORDERED: HALOPERIDOL LACTATE 5 MG/1 ML VIAL IM ONE (08:00)
[2020-08-20] MEDS ORDERED: HALOPERIDOL LACTATE 5 MG/1 ML VIAL IVP PRN (08:00)
[2020-08-20] MEDS: ENOXAPARIN SODIUM 40 MG/0.4 ML DISP.SYRIN SQ SCH (08:59)
[2020-08-20] MEDS: IV D5/ 0.9% NACL 1,000 ML IV PRN (09:25)
[2020-08-20] MEDS: DEXAMETHASONE SOD PHOSPHATE 4 MG INJ IV SCH (09:44)
[2020-08-20] MEDS: POTASSIUM CHLORIDE 50 ML IV SCH ×2 (10:48→11:34)
--- NOTE | 2020-08-20 11:06 | NUR ---
Received patient noted with increasing aggressiveness, combative, attempted to pull his IV line, and interferes with care. Denies of any pain at this time. Patient on BUE restraints , skin is intact. VS WNL. Patient titrated per MD order on RA saturation at 95-96%. Haldol IM 2.5mg given per MD order. Lockwood catheter reinserted to the patient , with urine cranberry in color noted, draining well. Potassium Chloride administer per MD order. Seen and examined by India Tillman NP and order for Mycostatin suspension 5ml.
--- NOTE | 2020-08-20 11:24 | NUR ---
WOUND CARE CONSULT: REVIEWED CHART, NURSING DOCUMENTATION AND PHOTOS WHICH INDICATE SCARRING AND DISCOLORATION, DRY SCABS, PRESENT ON ADMISSION. RECOMMENDATIONS MADE FOR SKIN PROTECTION. DISCUSSED WITH NURSING STAFF. RUSSELL CATH IN USE PER RN. WILL SEE PRNChilo GUTIÉRREZ IN AGREEMENT WITH PLAN OF CARE.
[2020-08-20 11:34] VITALS: BP 153/71
[2020-08-20] MEDS: NYSTATIN SUSPENSION 5 ML LIQUID UDC PO SCH ×4 (11:34→20:43)
[2020-08-20 16:00] VITALS: BP 158/76
[2020-08-20 16:14] LABS: EOSINOPHILS % (MANUAL) 1 % (0-8); LYMPHOCYTES % (MANUAL) 30 % (20-40); MONOCYTES % (MANUAL) 1 % (2-10); NEUTROPHILS % (MANUAL) 68 % (42-75)
[2020-08-20] MEDS: CEFTRIAXONE 1 G in IV DEXTROSE 5% 50 ML IV SCH (16:37)
--- NOTE | 2020-08-20 18:20 | NUR ---
Patient remains agitated throughout the shift. Still attempts to pull IV line and zabala catheter. Wrist restraint assessed per protocol. Zabala catheter draining well, IV line on the left forearm patent. Call light within easy reach, VS stable. All needs met.
--- NOTE | 2020-08-20 19:30 | NUR ---
Received patient lying in bed. AOx1, mainly confused. In no acute distress. No signs or symptoms of pain or SOB. IV site on left FA intact and patent. IVF infusing. NSR on tele at 74/min. Wrist restraint intact, circulation checked. Lockwood catheter intact and patent. COVID precaution observed. Safety measure initiated. Continue to monitor.
[2020-08-20 20:12] VITALS: BP 154/76
[2020-08-20] MEDS: AMIODARONE HCL 200 MG TABLET PO SCH (20:43)
[2020-08-20] MEDS: ATENOLOL 25 MG TABLET PO SCH (20:43)
[2020-08-21 00:06] VITALS: BP 156/66
[2020-08-21] MEDS: IV D5/ 0.9% NACL 1,000 ML IV PRN (00:33)
[2020-08-21 04:00] VITALS: BP 117/70
--- NOTE | 2020-08-21 06:08 | NUR ---
AOx1, mainly confused. In no acute distress. No signs or symptoms of pain or SOB. IV site on left FA intact and patent. IVF infusing. NSR on tele at 61/min. Wrist restraint intact, circulation checked. Lockwood catheter intact and draining via gravity. COVID precaution maintained. Safety measure maintained.
[2020-08-21 06:12] LABS: BASOPHILS % (AUTO) 0.4 % (0.0-2.0); EOSINOPHILS % (AUTO) 0.1 % (0.0-7.0); HEMATOCRIT 36.2 % (36.7-47.1); HEMOGLOBIN 12.5 g/dL (12.5-16.3); LYMPHOCYTES # (AUTO) 0.8 K/uL (20.0-40.0); LYMPHOCYTES % (AUTO) 15.8 % (20.5-51.5); MEAN CORPUSCULAR HEMOGLOBIN 31.5 uug (23.8-33.4); MEAN CORPUSCULAR HGB CONC 35 g/dL (32.5-36.3); MEAN CORPUSCULAR VOLUME 91.4 fL (73.0-96.2); MONOCYTES # (AUTO) 0.6 K/uL (2.0-10.0); MONOCYTES % (AUTO) 13.1 % (0.0-11.0); NEUTROPHILS # (AUTO) 3.4 K/uL (1.8-8.9); NEUTROPHILS % (AUTO) 70.6 % (38.5-71.5); PLATELET COUNT (AUTO) 294 K/uL (152-348); RED BLOOD CELL COUNT(AUTO) 3.96 MIL/uL (4.06-5.63); WHITE BLOOD COUNT (AUTO) 4.8 K/uL (3.6-10.2)
[2020-08-21 06:38] LABS: ABG BASE EXCESS -0.4 mmol/L; ABG HCO3 23.2 mmol/L; ABG PCO2 34.6 mmHg (35.0-45.0); ABG PH 7.445 (7.350-7.450); ABG PO2 65.2 mmHg (75.0-100.0); ABG SITE RIGHT RADIAL; ABG TOTAL HEMOGLOBIN 12.2 G/dL (13.5-18.0); COHb 1.6 % (0.5-1.5); MetHb 0.3 % (0.0-1.5); O2Hb 91.3 % (94.0-97.0); VENT MODE ROOM AIR
[2020-08-21 06:51] LABS: CREATININE 1.2 mg/dL (0.6-1.3); PHOSPHOROUS 2.4 mg/dL (2.5-4.9); POTASSIUM 3.7 mmol/L (3.5-5.1)
--- NOTE | 2020-08-21 08:00 | NUR ---
Pt alert and oriented x 4. released wrist restraints. Pt denies any c/o pain. pt on r/a 97%. Call light is within reach.
[2020-08-21] MEDS ORDERED: NEUTRA PHOS PACKET PO ONE (08:15)
[2020-08-21] MEDS: DEXAMETHASONE SOD PHOSPHATE 4 MG INJ IV SCH (08:31)
[2020-08-21] MEDS: NYSTATIN SUSPENSION 5 ML LIQUID UDC PO SCH ×4 (08:31→20:46)
[2020-08-21] MEDS: ENOXAPARIN SODIUM 40 MG/0.4 ML DISP.SYRIN SQ SCH (08:33)
--- NOTE | 2020-08-21 10:30 | NUR ---
Pt attempted to get oob and pulled out iv. Restrain re applied but loosely to remind pt not to get oob. IV restarted on left hand #20 gauge.
[2020-08-21 11:36] VITALS: BP 154/65
[2020-08-21] MEDS: CEFTRIAXONE 1 G in IV DEXTROSE 5% 50 ML IV SCH (15:03)
[2020-08-21 16:00] VITALS: BP 156/70
--- NOTE | 2020-08-21 17:01 | NUR ---
Calender Machine Operator Helper Note: This SW called patient's friend, Ashlyn [phone], who is listed on patient's facesheet as "person to notify". Ashlyn was available and receptive to speaking with this SW. Ashlyn is patients friend and employee in patients medical office. SW gathered some information from Ashlyn regarding reason for patient's re-hospitalization. Ashlyn stated that patient was discharged home on Friday 08/18, picked up by Ashlyn from the hospital. Ashlyn stated that she stayed with him at his home overnight, and patient fell a couple of times. Ashlyn stated that on Thursday morning she went home briefly, and when she returned she found patient on the floor. Ashlyn stated that patient was independent and working up until a couple of weeks ago when he tested positive for COVID. Ashlyn stated that patient was initially trying to recover from COVID at home, and Ashlyn was taking him food every day, however on day 7 or 8 after testing positive for COVID, patient got worse and needed to be hospitalized. With the re-hospitalization, Ashlyn stated that patient has now expressed understanding and agreement with the fact that he needs further treatment and rehab in order to regain his strength before returning home. DIEGO explored patients support system, and Ashlyn stated that patient has children, however he is estranged from them. Ashlyn stated that patient does not have a POA, and stated that patient most probably does not have a healthcare directive, although he has a will. Caregiver resources were discussed. Ashlyn stated that if patient is ambulatory and able to tend to his basic ADLs, she could continue to provide some help to him at home, as she had been prior to hospitalizations. Ashlyn stated that based on how patient progresses in rehab, caregiver options could be discussed closer to discharge. At this time, the desired plan is for patient to be able to go to rehab, when medically stable and if eligible. SW will remain available to patient and responsible libertarian, as needed.
[2020-08-21] MEDS ORDERED: ZOLPIDEM 5 MG TABLET PO PRN (20:00)
[2020-08-21] MEDS: AMIODARONE HCL 200 MG TABLET PO SCH (20:46)
[2020-08-21] MEDS: ATENOLOL 25 MG TABLET PO SCH (20:48)
[2020-08-21 20:56] VITALS: BP 158/69
[2020-08-22 00:49] VITALS: BP 116/62
[2020-08-22 04:58] VITALS: BP 154/68
--- NOTE | 2020-08-22 05:40 | NUR ---
Pt slept throughout the night with minimal complaints. Tried to get out of bed once, restrains stopped patient from getting out of bed. Pt was reoriented. Denies pain or SOB. Pt is on RA sating at 97%. IV site is intact and patent. Bed is locked and in lowest position. No other issues or concerns at this time. Will endorse to day shift.
[2020-08-22 07:18] LABS: BASOPHILS % (AUTO) 0.1 % (0.0-2.0); EOSINOPHILS % (AUTO) 0.1 % (0.0-7.0); HEMATOCRIT 35.9 % (36.7-47.1); HEMOGLOBIN 12.3 g/dL (12.5-16.3); LYMPHOCYTES % (AUTO) 19.3 % (20.5-51.5); MEAN CORPUSCULAR HEMOGLOBIN 29.7 uug (23.8-33.4); MEAN CORPUSCULAR HGB CONC 34 g/dL (32.5-36.3); MEAN CORPUSCULAR VOLUME 87.2 fL (73.0-96.2); MONOCYTES # (AUTO) 0.7 K/uL (2.0-10.0); MONOCYTES % (AUTO) 13.2 % (0.0-11.0); NEUTROPHILS # (AUTO) 3.5 K/uL (1.8-8.9); NEUTROPHILS % (AUTO) 67.3 % (38.5-71.5); PLATELET COUNT (AUTO) 295 K/uL (152-348); RED BLOOD CELL COUNT(AUTO) 4.12 MIL/uL (4.06-5.63); WHITE BLOOD COUNT (AUTO) 5.3 K/uL (3.6-10.2)
[2020-08-22 07:34] LABS: CREATININE 1.1 mg/dL (0.6-1.3); PHOSPHOROUS 2.7 mg/dL (2.5-4.9); POTASSIUM 3.6 mmol/L (3.5-5.1)
[2020-08-22] MEDS: DEXAMETHASONE SOD PHOSPHATE 4 MG INJ IV SCH ×2 (09:00→09:54)
[2020-08-22] MEDS: ENOXAPARIN SODIUM 40 MG/0.4 ML DISP.SYRIN SQ SCH ×2 (09:00→09:56)
[2020-08-22] MEDS: NYSTATIN SUSPENSION 5 ML LIQUID UDC PO SCH ×4 (09:54→20:32)
[2020-08-22] MEDS: IV D5/ 0.9% NACL 1,000 ML IV PRN (10:57)
--- NOTE | 2020-08-22 11:00 | NUR ---
Received pt in bed, awake, able to verbalize needs. COVID isolation implemented. No acute distress, no SOB. Pt on RA, O2 saturation 97%. Pt currently SR on Tele monitor. R hand 20 g IV patent and intact. Lockwood catheter in place, draining yellow urine. BL soft wrist restraints in place this am, released per protocol, repositioned pt, comfort, hydration, food, and safety provided. Pt to work with physical therapy, restraints removed, will continue to assess. No complaints of pain or discomfort at this time. Pt refused Lovenox and Decadron this am, explained purpose, benefits, risks, possible side effects, pt continued to refuse x3. DATABASE MARKETING ANALYST Jason made aware. Safety measures and fall precautions in place. Belongings and call light in reach, call light usage reinforced, pt verbalized understanding. Will continue to monitor.
[2020-08-22 11:35] VITALS: BP 151/55
[2020-08-22 16:00] VITALS: BP 150/66
[2020-08-22] MEDS: CEFTRIAXONE 1 G in IV DEXTROSE 5% 50 ML IV SCH (16:37)
[2020-08-22] MEDS: VANCOMYCIN IV 1,000 MG in IV DEXTROSE 5% 250 ML IV SCH (17:58)
[2020-08-22] MEDS ORDERED: TEMAZEPAM 15 MG CAPSULE PO PRN (19:00)
--- NOTE | 2020-08-22 19:00 | NUR ---
EOSS: Pt in bed, watching TV, no s/s of acute distress. Needs met promptly during shift. COVID isolation maintained throughout shift. Pt currently on RA, O2 saturation 97%, denies SOB. Pt remained alert, cooperative, and calm, BL restraints left off for remainder of shift. R hand IV patent and intact, IV medications and fluids administered per order, no a/r noted. Pt tolerated meals and fluids well. Safety measures and fall precautions maintained. Call light within reach. Will endorse care to transportation supervisor.
[2020-08-22 20:28] VITALS: BP 138/63
[2020-08-22] MEDS: ATENOLOL 25 MG TABLET PO SCH (20:34)
[2020-08-22] MEDS: AMIODARONE HCL 200 MG TABLET PO SCH (20:34)
[2020-08-23 00:12] VITALS: BP 125/50
[2020-08-23 04:28] VITALS: BP 126/44
--- NOTE | 2020-08-23 07:00 | NUR ---
patient rested well in between care; no acute distress; refused some meds last night but requested for sleeping medication; continue to monitor; nasal swab for covid sent to lab.
[2020-08-23 07:05] LABS: BASOPHILS % (AUTO) 0.7 % (0.0-2.0); EOSINOPHILS # (AUTO) 0.1 K/uL (0.0-0.7); EOSINOPHILS % (AUTO) 1.4 % (0.0-7.0); HEMATOCRIT 35.4 % (36.7-47.1); LYMPHOCYTES # (AUTO) 1.3 K/uL (20.0-40.0); LYMPHOCYTES % (AUTO) 26.1 % (20.5-51.5); MEAN CORPUSCULAR HEMOGLOBIN 30.4 uug (23.8-33.4); MEAN CORPUSCULAR HGB CONC 34 g/dL (32.5-36.3); MEAN CORPUSCULAR VOLUME 89.7 fL (73.0-96.2); MONOCYTES # (AUTO) 0.6 K/uL (2.0-10.0); NEUTROPHILS # (AUTO) 2.8 K/uL (1.8-8.9); NEUTROPHILS % (AUTO) 58.8 % (38.5-71.5); PLATELET COUNT (AUTO) 247 K/uL (152-348); RED BLOOD CELL COUNT(AUTO) 3.95 MIL/uL (4.06-5.63); WHITE BLOOD COUNT (AUTO) 4.8 K/uL (3.6-10.2)
[2020-08-23 07:34] LABS: CREATININE 1.2 mg/dL (0.6-1.3); MAGNESIUM 1.7 mg/dL (1.8-2.4); PHOSPHOROUS 2.8 mg/dL (2.5-4.9); POTASSIUM 3.4 mmol/L (3.5-5.1)
[2020-08-23] MEDS ORDERED: POTASSIUM CHLORIDE 20 MEQ TAB.PRT.SR PO ONE (08:15)
[2020-08-23] MEDS: MAGNESIUM SULFATE/D5W 100 ML IV SCH ×2 (08:51→10:05)
[2020-08-23] MEDS: NYSTATIN SUSPENSION 5 ML LIQUID UDC PO SCH ×4 (08:51→21:22)
[2020-08-23] MEDS: ENOXAPARIN SODIUM 40 MG/0.4 ML DISP.SYRIN SQ SCH ×2 (08:52→09:00)
[2020-08-23] MEDS: DEXAMETHASONE SOD PHOSPHATE 4 MG INJ IV SCH (08:53)
[2020-08-23 12:00] VITALS: BP 134/70
[2020-08-23] MEDS ORDERED: ZOLPIDEM 5 MG TABLET PO PRN ×2 (12:45)
[2020-08-23 16:00] VITALS: BP 153/58
[2020-08-23] MEDS: VANCOMYCIN IV 1,000 MG in IV DEXTROSE 5% 250 ML IV SCH (17:47)
--- NOTE | 2020-08-23 19:32 | NUR ---
Patient handoff to JOSELINE Moore. Partha Cruz RN
[2020-08-23 20:00] VITALS: BP 135/61
--- NOTE | 2020-08-23 20:50 | NUR ---
Pts. blood pressure is 165/68, pulse 56. Tenormin 25mg held, per MD. Ordered PRN 25mg Hydralazine q8h for SBP>150. Will recheck BP before administering.
[2020-08-23] MEDS: ATENOLOL 25 MG TABLET PO SCH (21:00)
[2020-08-23] MEDS: AMIODARONE HCL 200 MG TABLET PO SCH (21:00)
--- NOTE | 2020-08-23 21:08 | NUR ---
BP rechecked, 135/61. Pulse 53. Will continue with the plan of care.
[2020-08-23] MEDS: IV D5/ 0.9% NACL 1,000 ML IV PRN (21:44)
[2020-08-24] VITALS: BP 152/68
[2020-08-24] MEDS: hydrALAZINE HCL 25 MG TABLET PO PRN ×2 (00:28→12:54)
--- NOTE | 2020-08-24 01:12 | NUR ---
Pt desat at 89%. Placed on 4L NC, saturating at 94%. Will continue to monitor.
[2020-08-24 04:00] VITALS: BP 157/61
--- NOTE | 2020-08-24 06:43 | NUR ---
Pt slept intermittently through the night. No s/s of acute distress/sob at this time. NSR 66 on tele monitor. on 4L, tolerating well. Comfort care and needs attended. Safety measures in place. Call light within reach. Will endorse to oncoming nurse.
[2020-08-24 07:14] LABS: BASOPHILS % (AUTO) 0.2 % (0.0-2.0); HEMATOCRIT 38.4 % (36.7-47.1); HEMOGLOBIN 12.8 g/dL (12.5-16.3); LYMPHOCYTES % (AUTO) 13.6 % (20.5-51.5); MEAN CORPUSCULAR HEMOGLOBIN 29.4 uug (23.8-33.4); MEAN CORPUSCULAR HGB CONC 33 g/dL (32.5-36.3); MEAN CORPUSCULAR VOLUME 88.1 fL (73.0-96.2); MONOCYTES # (AUTO) 0.7 K/uL (2.0-10.0); MONOCYTES % (AUTO) 10.1 % (0.0-11.0); NEUTROPHILS # (AUTO) 5.4 K/uL (1.8-8.9); NEUTROPHILS % (AUTO) 76.1 % (38.5-71.5); PLATELET COUNT (AUTO) 232 K/uL (152-348); RED BLOOD CELL COUNT(AUTO) 4.36 MIL/uL (4.06-5.63); WHITE BLOOD COUNT (AUTO) 7.2 K/uL (3.6-10.2)
[2020-08-24 07:24] LABS: MAGNESIUM 1.9 mg/dL (1.8-2.4); PHOSPHOROUS 2.7 mg/dL (2.5-4.9)
[2020-08-24] MEDS ORDERED: SWABABLE VALVE TRANSFER SET EA MC ONE (08:53)
[2020-08-24] MEDS ORDERED: IOHEXOL 350 100 ML INFUS..BTL ONE (08:53)
[2020-08-24] MEDS ORDERED: IV NORMAL SALINE 250 ML IV ONE (08:53)
[2020-08-24] MEDS: ENOXAPARIN SODIUM 40 MG/0.4 ML DISP.SYRIN SQ SCH ×2 (09:00→09:42)
[2020-08-24] MEDS: DEXAMETHASONE SOD PHOSPHATE 4 MG INJ IV SCH (09:38)
[2020-08-24] MEDS: NYSTATIN SUSPENSION 5 ML LIQUID UDC PO SCH ×4 (09:38→20:32)
[2020-08-24 12:00] VITALS: BP 164/73
[2020-08-24] MEDS ORDERED: ALPRAZOLAM 0.5 MG TABLET PO PRN (12:00)
[2020-08-24] MEDS: IV D5 1/2 NS 1000 ML 1,000 ML IV PRN (15:16)
[2020-08-24 15:55] VITALS: BP 150/72
[2020-08-24] MEDS: VANCOMYCIN IV 1,000 MG in IV DEXTROSE 5% 250 ML IV SCH (18:11)
--- NOTE | 2020-08-24 19:45 | NUR ---
PATIENT ALERT ORIENTED, NO SOB NO CHEST PAIN, PATIENT REMAIN ON DROPLET PRECAUTION, AFEBRILE NO COUGHING NOTED, NO DIARRHEA. PATIENT DENIES PAIN AT THIS TIME, RUSSELL CATH PATENT, ON 3LPM VIA NC SAT 99%, TELE MONITOR SINUS RHYTHM. CONT TO MONITOR.
[2020-08-24 20:21] VITALS: BP 145/61
[2020-08-24] MEDS: AMIODARONE HCL 200 MG TABLET PO SCH (20:32)
[2020-08-24] MEDS: ATENOLOL 25 MG TABLET PO SCH (20:33)
--- NOTE | 2020-08-24 21:46 | NUR ---
PATIENT COMPLAIN OF ANXIETY, UNABLE TO SLEEP, REQUEST MEDICATION FOR ANXIETY AND FOR SLEEP. GIVEN XANAX ORDERED, NO ADVERSE REACTION, MEDICATION EFFECTIVE, CONT TO MONITOR.
[2020-08-25 00:09] VITALS: BP 142/66
[2020-08-25 04:00] VITALS: BP 162/68
[2020-08-25] MEDS: VANCOMYCIN IV 1,000 MG in IV DEXTROSE 5% 250 ML IV SCH (05:23)
--- NOTE | 2020-08-25 06:06 | NUR ---
PATIENT ALERT ORIENTED, NO SOB NO CHEST PAIN, PATIENT ON TELE MONITOR SINUS RHYTHM SINUS SLICK WHEN PATENT ON DEEP SLEEP. PATIENT REFUSED OXYGEN, O2 SAT 97% AT ROOM TEMP. PATIENT REFUSED LAB WORKS AT THIS TIME, WILL TRY AGAIN, PATIENT REFUSED TO BE BOTHER AT THIS TIME, RUSSELL CATH PATENT, NO COMPLAIN OF PAIN. CONT TO MONITOR.
[2020-08-25] MEDS ORDERED: HYDR-894 PO (08:52)
[2020-08-25] MEDS ORDERED: ALPR0.5T PO (08:52)
[2020-08-25] MEDS ORDERED: DEXA4VIA17 IV (08:52)
[2020-08-25] MEDS ORDERED: VANC1PIG IV (08:52)
[2020-08-25] MEDS: ENOXAPARIN SODIUM 40 MG/0.4 ML DISP.SYRIN SQ SCH (09:00)
[2020-08-25 09:03] LABS: BASOPHILS % (AUTO) 0.1 % (0.0-2.0); EOSINOPHILS % (AUTO) 0.1 % (0.0-7.0); HEMATOCRIT 36.8 % (36.7-47.1); HEMOGLOBIN 12.2 g/dL (12.5-16.3); LYMPHOCYTES # (AUTO) 0.9 K/uL (20.0-40.0); MEAN CORPUSCULAR HGB CONC 33 g/dL (32.5-36.3); MEAN CORPUSCULAR VOLUME 87.5 fL (73.0-96.2); MONOCYTES # (AUTO) 0.7 K/uL (2.0-10.0); MONOCYTES % (AUTO) 11.3 % (0.0-11.0); NEUTROPHILS # (AUTO) 4.9 K/uL (1.8-8.9); NEUTROPHILS % (AUTO) 74.5 % (38.5-71.5); PLATELET COUNT (AUTO) 208 K/uL (152-348); WHITE BLOOD COUNT (AUTO) 6.6 K/uL (3.6-10.2)
[2020-08-25 09:07] LABS: CREATININE 1.1 mg/dL (0.6-1.3); POTASSIUM 3.8 mmol/L (3.5-5.1)
[2020-08-25] MEDS: NYSTATIN SUSPENSION 5 ML LIQUID UDC PO SCH ×3 (09:10→17:08)
[2020-08-25] MEDS: DEXAMETHASONE SOD PHOSPHATE 4 MG INJ IV SCH (09:12)
[2020-08-25] MEDS: IV D5 1/2 NS 1000 ML 1,000 ML IV PRN (10:00)
== END 2020-08-25 17:25 | DRG 917 ==
LOC: ER 11:07 → TELE3 13:56
PROVIDERS: ADMIT Nurse Practitioner Acute Care; ATTEND Nurse Practitioner Acute Care
DX: T42.4X1A Poisoning by benzodiazepines, accidental (unintentional), initial encounter (principal); G92 Toxic encephalopathy; U07.1 COVID-19; J12.82 Pneumonia due to coronavirus disease 2019; N17.0 Acute kidney failure with tubular necrosis; J96.01 Acute respiratory failure with hypoxia; J15.9 Unspecified bacterial pneumonia; B37.0 Candidal stomatitis; N39.0 Urinary tract infection, site not specified; D68.69 Other thrombophilia; Y92.039 Unspecified place in apartment as the place of occurrence of the external cause; B95.2 Enterococcus as the cause of diseases classified elsewhere; N40.1 Benign prostatic hyperplasia with lower urinary tract symptoms; R33.8 Other retention of urine; I12.9 Hypertensive chronic kidney disease with stage 1 through stage 4 chronic kidney disease, or unspecified chronic kidney disease; E83.39 Other disorders of phosphorus metabolism; N18.9 Chronic kidney disease, unspecified; Z87.01 Personal history of pneumonia (recurrent); Z90.49 Acquired absence of other specified parts of digestive tract; Z87.19 Personal history of other diseases of the digestive system; R29.6 Repeated falls
CPT/HCPCS: 36415; 36600; 70030-TC; 70450; 71045; 71275; 83605; 83615; 83735; 84100; 85025; 85730; 86140; 87040; 87077; 87086; 93005; G0378; J0696; J1100; J1630; J1650; J3370; J3475; J3480; J3490; J7040; J7042; J7050; J7060; Q9967; U0003

== ENCOUNTER 2020-08-24 12:57 | Inpatient (IN) | payer MEDICARE, BC ==
[~2020-08-24] VITALS: Ht 152.4 cm; Wt 65.8 kg
[2020-08-25] MEDS ORDERED: DEXA4VIA17 IV (08:52)
[2020-08-25] MEDS ORDERED: VANC1PIG IV (08:52)
[2020-08-25] MEDS ORDERED: ALPR0.5T PO (08:52)
[2020-08-25] MEDS ORDERED: HYDR-894 PO (08:52)
--- NOTE | 2020-08-25 17:45 | NUR ---
Received patient from [facility] Telemetry. Patient AOx3-4. On room air. No signs of distress. Lockwood catheter intact. Pt has Left Upper Arm IV access with D5 1/2 NS running at 75cc/hr. Dr. Stiles informed to reconcile medications. Dr. Parra informed of the admission.
[2020-08-25 20:00] VITALS: BP 140/69
[2020-08-25] MEDS ORDERED: QUETIAPINE FUMARATE 25 MG TABLET PO PRN (20:45)
[2020-08-25] MEDS ORDERED: hydrALAZINE HCL 25 MG TABLET PO PRN (20:45)
[2020-08-25] MEDS: ENOXAPARIN SODIUM 40 MG/0.4 ML DISP.SYRIN SQ SCH (21:00)
[2020-08-25] MEDS ORDERED: ATENOLOL 50 MG TABLET PO SCH (21:00)
[2020-08-25] MEDS ORDERED: AMIODARONE HCL 200 MG TABLET PO SCH (21:00)
[2020-08-25] MEDS ORDERED: VANCOMYCIN IV 1,000 MG in IV DEXTROSE 5% 250 ML IV ONE (21:15)
[2020-08-25] MEDS: ALPRAZOLAM 0.5 MG TABLET PO PRN (21:21)
--- NOTE | 2020-08-25 21:45 | NUR ---
Patient in bed awake and able to make needs known.Denies pain .No acute distress noted. On RA.Lockwood catheter in place draining well with clear yellow output.Iv on Left uA 20g.Administered IV ATB .No a/r noted.Tolerated well.Patient able to ambulates with walker with assist.Safety measures in place.Will continue to monitor.
[2020-08-26 04:00] VITALS: BP 138/52
--- NOTE | 2020-08-26 05:59 | NUR ---
Patient c/o abdominal pain /indigestion and feeling nausea. PAged office automation clerk Dr.Sam Veliz.Awaiting Dr mendieta back.
[2020-08-26 08:00] VITALS: BP 161/61
[2020-08-26] MEDS ORDERED: RAMIPRIL 2.5 MG CAPSULE PO SCH (09:00)
[2020-08-26] MEDS: DEXAMETHASONE SOD PHOSPHATE 4 MG INJ IV SCH (09:00)
[2020-08-26] MEDS: VANCOMYCIN IV 1,000 MG in IV DEXTROSE 5% 250 ML IV SCH ×2 (09:09→21:52)
[2020-08-26] MEDS: RAMIPRIL 5 MG CAPSULE PO SCH ×2 (09:40→21:52)
[2020-08-26] MEDS ORDERED: MAG HYDROX/AL HYDROX/SIMETH 30 ML LIQUID UDC PO PRN (09:45)
--- NOTE | 2020-08-26 10:00 | NUR ---
Received pt in bed, awake, A&Ox4, able to verbalize needs. No acute distress noted. VSS. Pt denies pain/discomfort at this time. Pt refused scheduled Decadron, explained purpose, benefits, risks, and side effects, pt continued to refuse MD Dr. Steven salinas aware. Safety measures and fall precautions in place. Call light and belongings within reach. Will continue to monitor.
[2020-08-26] MEDS ORDERED: AMIODARONE HCL 200 MG TABLET PO SCH (11:26)
[2020-08-26 16:32] VITALS: BP 137/58
--- NOTE | 2020-08-26 18:33 | NUR ---
EOSS: Pt in bed, awake, watching TV. No acute distress noted, no SOB. O2 sat 94% on RA. VSS. Pt denies pain/discomfort at this time. IV abx administered per order, no a/r noted. STACIA peripheral IV patent and intact. Lockwood catheter patent, draining yellow urine. Per OT, pt ambulated with FWW, tolerated well. All needs attended to. Call light and belongings within reach. Safety measures and fall precautions maintained. Will endorse care to night court magistrate.
[2020-08-26 20:42] VITALS: BP 128/51
[2020-08-26] MEDS: ENOXAPARIN SODIUM 40 MG/0.4 ML DISP.SYRIN SQ SCH (21:00)
[2020-08-26] MEDS ORDERED: AMIODARONE HCL 200 MG TABLET ONE (21:50)
[2020-08-26] MEDS: ATENOLOL 25 MG TABLET PO SCH (21:53)
[2020-08-26] MEDS: AMIODARONE HCL 200 MG TABLET PO SCH (21:58)
[2020-08-26] MEDS: ALPRAZOLAM 0.5 MG TABLET PO PRN (22:08)
[2020-08-27 04:42] VITALS: BP 142/58
--- NOTE | 2020-08-27 06:44 | NUR ---
End of Shift: Patient is AOx3-4. No acute distress noted, no SOB. O2 sat 91% on RA. VSS. Pt denies pain/discomfort at this time. IV ABX administered per order. PO medications given as ordered and tolerated well. STACIA peripheral IV patent and intact. Removed patients L. hand IV per patient request. Lockwood catheter patent, draining yellow urine. Patient is ambulatory with walker. All needs attended to. Call light and belongings within reach. Safety measures and fall precautions maintained. Will endorse to the AM shift nurse.
[2020-08-27 07:02] LABS: BASOPHILS % (AUTO) 0.5 % (0.0-2.0); EOSINOPHILS # (AUTO) 0.2 K/uL (0.0-0.7); EOSINOPHILS % (AUTO) 2.6 % (0.0-7.0); HEMATOCRIT 33.3 % (36.7-47.1); HEMOGLOBIN 11.3 g/dL (12.5-16.3); LYMPHOCYTES # (AUTO) 1.5 K/uL (20.0-40.0); LYMPHOCYTES % (AUTO) 22.4 % (20.5-51.5); MEAN CORPUSCULAR HEMOGLOBIN 29.8 uug (23.8-33.4); MEAN CORPUSCULAR HGB CONC 34 g/dL (32.5-36.3); MEAN CORPUSCULAR VOLUME 88.3 fL (73.0-96.2); MONOCYTES # (AUTO) 0.9 K/uL (2.0-10.0); NEUTROPHILS # (AUTO) 4.1 K/uL (1.8-8.9); NEUTROPHILS % (AUTO) 60.5 % (38.5-71.5); PLATELET COUNT (AUTO) 158 K/uL (152-348); RED BLOOD CELL COUNT(AUTO) 3.77 MIL/uL (4.06-5.63); WHITE BLOOD COUNT (AUTO) 6.8 K/uL (3.6-10.2)
[2020-08-27 07:19] LABS: CREATININE 1.2 mg/dL (0.6-1.3); POTASSIUM 3.6 mmol/L (3.5-5.1)
[2020-08-27 07:34] LABS: EOSINOPHILS % (MANUAL) 2 % (0-8); LYMPHOCYTES % (MANUAL) 17 % (20-40); MONOCYTES % (MANUAL) 18 % (2-10); NEUTROPHILS % (MANUAL) 63 % (42-75)
[2020-08-27 08:00] VITALS: BP 175/66
[2020-08-27] MEDS: DEXAMETHASONE SOD PHOSPHATE 4 MG INJ IV SCH (08:32)
[2020-08-27] MEDS: RAMIPRIL 5 MG CAPSULE PO SCH ×4 (08:32→21:15)
[2020-08-27] MEDS: VANCOMYCIN IV 1,000 MG in IV DEXTROSE 5% 250 ML IV SCH (09:28)
--- NOTE | 2020-08-27 10:37 | NUR ---
Discontinue zabala catheter per Doctor MD Gama. Partha Cruz RN
--- NOTE | 2020-08-27 11:45 | NUR ---
Doctor Gama aware patient requests to perform his own self catheterization. Partha Cruz RN
[2020-08-27] MEDS: PROPAFENONE HCL 150 MG TABLET PO SCH ×2 (13:28→21:16)
[2020-08-27] MEDS ORDERED: CLONIDINE HCL 0.1 MG TABLET PO PRN (13:30)
[2020-08-27 13:36] VITALS: BP 150/53
--- NOTE | 2020-08-27 14:03 | NUR ---
Doctor Jennifer, [place], [place] for discontinuation of iv and vancomycin per patient request. Partha Cruz RN
[2020-08-27 15:19] VITALS: BP 150/57
--- NOTE | 2020-08-27 18:33 | NUR ---
Handoff from Karoline Espinosa RN. Partha Cruz, JOSELINE Addendum: 08/27/20 at 1835 by [facility] RN Late entry [id number]
--- NOTE | 2020-08-27 19:08 | NUR ---
Handoff with JOSELINE De Los Santos. Partha Cruz RN
[2020-08-27 20:00] VITALS: BP 138/64
--- NOTE | 2020-08-27 20:00 | NUR ---
RECEIVED PATIENT AWAKE IN BED. A/O X4. DENIES ANY PAIN OR DISCOMFORT. NO RESP. DISTRESS NOTED. DENIES ANY SOB. VS WNL. F/C INTACT AND PATENT. BED ALARM ON. CALL LIGHT IN REACH. ALL NEEDS ATTENDED. WILL CONTINUE TO MONITOR AND ASSESS.
[2020-08-27] MEDS: ATENOLOL 25 MG TABLET PO SCH (21:00)
[2020-08-27] MEDS: ENOXAPARIN SODIUM 40 MG/0.4 ML DISP.SYRIN SQ SCH (21:00)
[2020-08-27] MEDS: AMIODARONE HCL 200 MG TABLET PO SCH (21:15)
[2020-08-27] MEDS: ALPRAZOLAM 0.5 MG TABLET PO PRN (21:18)
[2020-08-28 04:00] VITALS: BP 144/70
--- NOTE | 2020-08-28 06:31 | NUR ---
PATIENT ASLEEP IN BED, SLEPT WELL THROUGHOUT THE NIGHT. BED ALARM ON. CALL LIGHT IN REACH. ALL NEEDS ATTENDED.
--- NOTE | 2020-08-28 07:30 | NUR ---
patient is received resting in bed, awake alert and oriented times 4. No sign of distress noted. Patient says he fell very hungry and need extra calories. Contacted dietary to add some extra calories for patient. safety precautions are in place. Will continue to monitor.
[2020-08-28 08:00] VITALS: BP 152/72
[2020-08-28] MEDS: RAMIPRIL 5 MG CAPSULE PO SCH ×2 (08:31→20:36)
[2020-08-28] MEDS: DEXAMETHASONE SOD PHOSPHATE 4 MG INJ IV SCH (08:32)
[2020-08-28] MEDS: PROPAFENONE HCL 150 MG TABLET PO SCH ×2 (08:32→20:39)
--- NOTE | 2020-08-28 08:33 | NUR ---
Patient has no IV access. Will make MD aware for possible DC per pharmacist. Patient has been on med since 08/20 and is now negative for Covid per PCR. Will continue to monitor.
--- NOTE | 2020-08-28 13:16 | NUR ---
INDIVIDUALIZED PLAN OF CARE
[2020-08-28] MEDS: DEXAMETHASONE 4 MG TABLET PO SCH (13:57)
--- NOTE | 2020-08-28 15:00 | NUR ---
Patient complaining that he feels the urge to pee and is having a burning sensation . Patient currently has a Lockwood. Took a urine sample for analysis. Will continue to monitor.
[2020-08-28 16:00] VITALS: BP 110/57
--- NOTE | 2020-08-28 16:44 | NUR ---
Patient is not wanting to remove Lockwood until he has a urology consult. Will make MD aware. Will continue to follow.
[2020-08-28 17:28] LABS: *BILIRUBIN,URIN 1+ (NEGATIVE); *BLOOD, URINE 2+ (NEGATIVE); *CLARITY,URINE CLEAR (CLEAR); *COLOR,URINE YELLOW (YELLOW); *KETONES,URINE 1+ (NEGATIVE); LEUKOCYTE ESTERASE ,URINE NEGATIVE (NEGATIVE); NITRITE, URINE NEGATIVE (NEGATIVE); PH,URINE 5.5 (5.0-8.0); UGLUCOSE NEGATIVE (NEGATIVE)
--- NOTE | 2020-08-28 18:46 | NUR ---
Patient left sitting i chair. No sign of distress noted. Made MD aware of patient's concerns about Lockwood catheter. safety precautions are in place. Will endorse to oncoming nurse.
[2020-08-28] MEDS: AMIODARONE HCL 200 MG TABLET PO SCH (20:38)
[2020-08-28 20:39] VITALS: BP 140/58
[2020-08-28] MEDS: ATENOLOL 25 MG TABLET PO SCH (20:40)
[2020-08-28] MEDS: ALPRAZOLAM 0.5 MG TABLET PO PRN (21:00)
[2020-08-28] MEDS: ENOXAPARIN SODIUM 40 MG/0.4 ML DISP.SYRIN SQ SCH (21:00)
--- NOTE | 2020-08-28 21:29 | NUR ---
Received pt resting in bed and watching tv. AAO x4. No acute distress noted. Denies pain/ discomfort. Due meds given as ordered. Refused Lovenox, risks and benefits explained, pt still refused. Lockwood catheter draining well with clear yellow colored urine. Safety measures maintained. Call light and personal items within reach. Will continue to monitor.
[2020-08-28 22:25] LABS: BACTERIA,URINE NONE SEEN /HPF (NONE SEEN); SQUAMOUS EPITHELIAL CELL,UR FEW /HPF (NONE SEEN); WBC,URINE 0-3 /HPF (0-3)
[2020-08-28 22:26] LABS: CALCIUM OXALATE CRYSTALS,UR MODERATE /HPF (NONE SEEN)
[2020-08-29 04:56] VITALS: BP 111/63
[2020-08-29 06:55] LABS: BASOPHILS % (AUTO) 0.1 % (0.0-2.0); HEMATOCRIT 35.4 % (36.7-47.1); HEMOGLOBIN 11.7 g/dL (12.5-16.3); LYMPHOCYTES # (AUTO) 0.6 K/uL (20.0-40.0); LYMPHOCYTES % (AUTO) 12.7 % (20.5-51.5); MEAN CORPUSCULAR HEMOGLOBIN 29.3 uug (23.8-33.4); MEAN CORPUSCULAR HGB CONC 33 g/dL (32.5-36.3); MONOCYTES # (AUTO) 0.3 K/uL (2.0-10.0); NEUTROPHILS # (AUTO) 3.9 K/uL (1.8-8.9); NEUTROPHILS % (AUTO) 80.2 % (38.5-71.5); PLATELET COUNT (AUTO) 164 K/uL (152-348); RED BLOOD CELL COUNT(AUTO) 3.97 MIL/uL (4.06-5.63); WHITE BLOOD COUNT (AUTO) 4.9 K/uL (3.6-10.2)
[2020-08-29 08:00] VITALS: BP 147/51
[2020-08-29 08:00] LABS: BILIRUBIN,TOTAL 0.3 mg/dL (0.2-1.0); CREATININE 1.1 mg/dL (0.6-1.3); MAGNESIUM 1.9 mg/dL (1.8-2.4); PHOSPHOROUS 3.5 mg/dL (2.5-4.9); POTASSIUM 4.3 mmol/L (3.5-5.1); TOTAL PROTEIN, SERUM 5.9 g/dL (6.4-8.2)
--- NOTE | 2020-08-29 08:00 | NUR ---
pt in chair eating breakfast, awake alert and oriented x4, skin intact, pt on room air saturating at 97%, no signs of distress noted, no reports of pain at this time. pt able to ambulate with walker to restroom, voids via zabala, voiding yellow urine. Bed in low and locked position, call light within reach, safety and fall precautions in place. Will continue with plan of care.
[2020-08-29] MEDS: DEXAMETHASONE 4 MG TABLET PO SCH (08:27)
[2020-08-29] MEDS: PROPAFENONE HCL 150 MG TABLET PO SCH ×2 (08:28→20:37)
[2020-08-29] MEDS: RAMIPRIL 5 MG CAPSULE PO SCH ×2 (08:35→20:38)
--- NOTE | 2020-08-29 13:22 | NUR ---
INTERDISCIPLINARY TEAM CONFERENCE
[2020-08-29 16:37] VITALS: BP 158/67
[2020-08-29] MEDS: ATENOLOL 25 MG TABLET PO SCH (20:37)
[2020-08-29] MEDS: AMIODARONE HCL 200 MG TABLET PO SCH (20:38)
[2020-08-29] MEDS: ALPRAZOLAM 0.5 MG TABLET PO PRN (21:09)
--- NOTE | 2020-08-29 21:30 | NUR ---
Received pt resting in bed and watching tv. AAO x4. No acute distress noted. Denies pain/ discomfort. Due meds administered as ordered Pt. requested XANAX, PRN administered tolerated well without ADR Lockwood catheter draining well with clear yellow colored urine. Safety measures maintained. Call light and personal items within reach. Will continue to monitor.
--- NOTE | 2020-08-30 07:07 | NUR ---
Patient slept well throughout the night no c/o pain or acute distress noted. Safety measures observed all time. All needs anticipated. AM report given to nurse, continue with current plan of care
[2020-08-30 07:30] VITALS: BP 157/59
[2020-08-30] MEDS ORDERED: DEXAMETHASONE 4 MG TABLET PO SCH (09:00)
[2020-08-30] MEDS: PROPAFENONE HCL 150 MG TABLET PO SCH (09:23)
[2020-08-30] MEDS: RAMIPRIL 5 MG CAPSULE PO SCH (09:33)
[2020-08-30] MEDS ORDERED: ACETAMINOPHEN 325 MG TABLET PO PRN (12:15)
[2020-08-30 16:04] VITALS: BP 131/54
--- NOTE | 2020-08-30 19:37 | NUR ---
No significant changes during shift. Lockwood removed per MD order. Will endorse to incoming shift.
--- NOTE | 2020-08-30 20:15 | NUR ---
PATIENT WAS DISCHARGE HOME, TRUCK DRIVER FLATBED BY HIS PRIVATE WOUND CARE RN VIA PRIVATE CAR. PATIENT TOOK ALL BELONINGS.
== END 2020-08-30 20:43 | disposition home health service (06) | DRG 177 ==
PROVIDERS: ADMIT Physical Medicine & Rehabilitation Pain Medicine; ATTEND Physical Medicine & Rehabilitation Pain Medicine
DX: U07.1 COVID-19 (principal); J12.82 Pneumonia due to coronavirus disease 2019; J96.01 Acute respiratory failure with hypoxia; N17.0 Acute kidney failure with tubular necrosis; G92 Toxic encephalopathy; J18.9 Pneumonia, unspecified organism; N39.0 Urinary tract infection, site not specified; D68.59 Other primary thrombophilia; B95.2 Enterococcus as the cause of diseases classified elsewhere; I12.9 Hypertensive chronic kidney disease with stage 1 through stage 4 chronic kidney disease, or unspecified chronic kidney disease; N18.9 Chronic kidney disease, unspecified; Z87.19 Personal history of other diseases of the digestive system; Z90.49 Acquired absence of other specified parts of digestive tract; Z91.81 History of falling; R29.6 Repeated falls; N40.1 Benign prostatic hyperplasia with lower urinary tract symptoms; I25.10 Atherosclerotic heart disease of native coronary artery without angina pectoris; I70.0 Atherosclerosis of aorta; R33.9 Retention of urine, unspecified; T42.4X1D Poisoning by benzodiazepines, accidental (unintentional), subsequent encounter
CPT/HCPCS: 36415; 70030-TC; 71045; 83615; 83735; 84100; 84153; 85025; 86140; C1758; J1100; J1650; J3370; J7050; J7060; J8540